=== PATIENT | male | born 1955 | race Caucasian/White ===

== ENCOUNTER 2018-01-23 06:56 | Day surgery (SDC) | payer OTHER ==
[~2018-01-23 06:56] MED LIST: ACET325T11 PO; AMLO5TAB22 PO; LEXA10TA PO; ST J81CH PO
[2018-01-23 07:20] VITALS: BP 139/92; PULSE 93; RESP 20; TEMP 98.4; O2SAT 85
== END 2018-01-23 08:55 | disposition home or self-care (01) ==
LOC: HROP 06:56 → HRIP 06:58 → HROP 08:55
PROVIDERS: ATTEND Family Medicine
DX: R62.7 Adult failure to thrive (principal)